=== PATIENT | male | born 2000 | race Caucasian/White ===

== ENCOUNTER 2024-07-08 14:15 | Emergency (ER) | payer MEDICAID, SELFPAY ==
[2024-07-08 14:33] VITALS: BP 112/87; PULSE 103; RESP 18; TEMP 37.2; O2SAT 100
--- NOTE | 2024-07-08 14:39 | ED_ITS ---
HPI - URI/Sore Throat General Chief Complaint: Upper Respiratory Infection Stated Complaint: Cough/Congestion/Body Aches Source: patient and RN notes reviewed Mode of arrival: ambulatory Limitations: no limitations History of Present Illness HPI Narrative: 23 y/o male presented for c/o headache, body aches, sinus drainage and congestion, cough, fever/chills. Onset 2 days. Had an episode of vomiting this morning. Denies sob, wheezing, or chest pain. Taking Dayquil. MD elicited complaint: cough Related Data Home Medications ?Medication ?Instructions ?Recorded ?Confirmed ?Last Taken ?Type atorvastatin 20 mg tablet 20 mg PO QPM 07/08/24 07/08/24 Unknown History lisinopril 5 mg tablet 5 mg PO DAILY 07/08/24 07/08/24 Unknown History Allergies Allergy/AdvReac Type Severity Reaction Status Date / Time No Known Allergies Allergy Verified 07/08/24 14:32 Review of Systems Review of Systems: CONSTITUTIONAL: Endorses malaise, chills, sweats, fever EYES: Denies visual changes, redness, or discharge ENT: Reports rhinorrhea, congestion, denies otalgia, sore throat CARDIOVASCULAR: Denies chest pain, palpitations, edema RESPIRATORY: Reports cough, post nasal drainage. Denies dyspnea GASTROINTESTINAL: Denies abdominal pain, nausea, reports vomiting MUSCULOSKELETAL: Endorses myalgia Exam Narrative: GENERAL: mildly Ill-appearing, nontoxic no acute distress. EYES: PERRLA, conjunctivae clear ENT: Mucous membranes moist. TM pearly sanabria with dull light reflex bilaterally; no tragal tenderness. Oropharynx erythematous without lesions or exudate, no drooling, no hoarseness, no trismus, uvula midline. No tripod positioning, muffled voice, soft palate or pharyngeal wall bulging NECK: Supple. No lymphadenopathy CHEST: Clear to auscultation, breath sounds equal. No wheezing, rhonchi, rales, or stridor. No respiratory distress, speaks in full sentences. HEART: Regular rate and rhythm. No murmur heard. SKIN: Warm, dry, no rash. NEURO: Alert and oriented x3. PSYCH: Normal mood and affect Course Course Emergency Course: Patient is aware of diagnosis, understands and agrees to treatment plan. Anticipatory guidance given. Patient agrees to follow-up as directed and is aware of reasons to seek care at the emergency department. Portions of this record may have been created with voice recognition software Level of Care: Express Care Visit Vital Signs Vital signs: Vital Signs Temperature 99.0 F 07/08/24 14:33 Pulse Rate 103 H 07/08/24 14:33 Respiratory Rate 18 07/08/24 14:33 Blood Pressure 112/87 07/08/24 14:33 Pulse Oximetry 100 07/08/24 14:33 Oxygen Delivery Room Air 07/08/24 14:33 Temperature 99.0 F 07/08/24 14:33 Pulse Rate 103 H 07/08/24 14:33 Respiratory Rate 18 07/08/24 14:33 Blood Pressure 112/87 07/08/24 14:33 Pulse Oximetry 100 07/08/24 14:33 Oxygen Delivery Room Air 07/08/24 14:33 reviewed MDM - URI/Sore Throat MDM Narrative Medical decision making narrative: Negative flu and COVID Discussed physical exam findings. Advised supportive measures and signs/symptoms to go to the ER. Pt is appropriate for outpt treatment and f/u. Differential Diagnosis Differential diagnosis: Likely upper respiratory infection, sinusitis, viral infection, bronchitis, influenza and pharyngitis Discharge Plan Discharge Clinical Impression: Viral infection Patient Disposition: Home, Self-Care Condition: Stable Instructions: Influenza (ED) Additional Instructions: Flu and COVID negative. You should avoid crowds until you are fever free for 24 hours without the use of fever reducing medications, or the symptoms are improved Rest. Drink plenty of fluids. Tylenol 1000mg every 8 hours as needed for pain/fever Flonase spray and Zyrtec (or Claritin/Ivonne) for sinus pressure/congestion over the counter Cough syrup may cause drowsiness; avoid driving or take it at night time. Follow up with your primary care provider as needed Go to the ER for worsening symptoms or concerns Patient Language: Slovenian Prescriptions: No Action atorvastatin 20 mg tablet 20 mg PO QPM lisinopril 5 mg tablet 5 mg PO DAILY Follow-up/Referrals: UNKNOWN,DOCTOR [Primary Care Provider] - Time of Disposition: 14:58
[2024-07-08 14:53] LABS: EDCOVIDSCREEN Negative (Negative); EDINFLUASCREEN Negative (Negative); EDINFLUBSCREEN Negative (Negative)
== END 2024-07-08 15:00 | disposition home or self-care (01) ==
PROVIDERS: Emergency Provider Nurse Practitioner Family
DX: B34.9 Viral infection, unspecified (principal); Z20.822 Contact with and (suspected) exposure to COVID-19
CPT/HCPCS: 87426; 87804; 99213; G0463

== ENCOUNTER 2025-02-26 18:50 | Emergency (ER) | payer OTHER, SELFPAY ==
[2025-02-26 18:59] VITALS: BP 132/80; PULSE 96; RESP 18; TEMP 36.6; O2SAT 100
--- NOTE | 2025-02-26 19:01 | ED.URI ---
HPI - URI/Sore Throat General Chief Complaint: Upper Respiratory Infection Stated Complaint: Chest Congestion Time Seen by Provider: 02/26/25 19:02 Source: patient Mode of arrival: ambulatory Limitations: no limitations History of Present Illness HPI Narrative: 24-year-old male presents with complaint of cough and chest congestion for 4 days. Patient reports symptoms started with weather changes, started to get some nasal congestion and postnasal drainage. Afebrile. No chest pain or shortness of breath. Taking [id number] DayQuil to treat symptoms. Patient states the last time he had similar symptoms he waited too long and developed pneumonia. All systems reviewed and negative except as noted above. Related Data Home Medications ?Medication ?Instructions ?Recorded ?Confirmed ?Last Taken ?Type atorvastatin 20 mg tablet 20 mg PO QPM 07/08/24 02/26/25 Unknown History lisinopril 5 mg tablet 5 mg PO DAILY 07/08/24 02/26/25 Unknown History Allergies Allergy/AdvReac Type Severity Reaction Status Date / Time No Known Allergies Allergy Verified 02/26/25 18:57 PMFSH Comments At time of signature, agree with nursing past medical, surgical, social and family history. There is no relevant family history pertinent to the presenting complaint. Exam Narrative: GENERAL: This is a well-nourished, well-developed patient, in no apparent distress. HEAD: normocephalic, atraumatic. EYES: PERRL. Sclera clear/white. Vision is grossly intact. EARS: External ears normal, auditory canals clear and without drainage, TMs normal without perforation. Hearing grossly intact. NOSE: External nose normal with clear nasal drainage THROAT: Mucous membranes moist, clear postnasal drainage without significant erythema swelling or exudates. NECK: Neck supple, non-tender without lymphadenopathy, masses or thyromegaly. CARDIOVASCULAR: Regular rate and rhythm without murmurs, gallops, or rubs. RESPIRATORY: Clear to auscultation. Breath sounds equal bilaterally. No wheezes, rales, or rhonchi. SKIN: warm, Dry, intact with no suspicious lesions or rash, good texture and turgor. NEURO: awake, alert, and oriented to person, place and time. There were no obvious focal neurologic abnormalities. EXTREMITIES: No joint tenderness, effusion, or edema noted. Course Course Level of Care: Express Care Visit Vital Signs Vital signs: Vital Signs Temperature 36.6 C 02/26/25 18:59 Pulse Rate 96 02/26/25 18:59 Respiratory Rate 18 02/26/25 18:59 Blood Pressure 132/80 02/26/25 18:59 Pulse Oximetry 100 02/26/25 18:59 Temperature 36.6 C 02/26/25 18:59 Pulse Rate 96 02/26/25 18:59 Respiratory Rate 18 02/26/25 18:59 Blood Pressure 132/80 02/26/25 18:59 Pulse Oximetry 100 02/26/25 18:59 Reviewed MDM - URI/Sore Throat MDM Narrative Medical decision making narrative: Patient is well-appearing, nontoxic. Afebrile. Recommend [id number] medications to treat URI symptoms. Lungs are clear to auscultation. Differential Diagnosis Differential diagnosis: Likely upper respiratory infection, sinusitis, viral infection and bronchitis Discharge Plan Discharge Clinical Impression: Viral upper respiratory tract infection with cough Patient Disposition: Home Condition: Stable Instructions: Upper Respiratory Infection (ED) Additional Instructions: Your symptoms are viral and may last 10-14 days. Continue [id number] DayQuil NyQuil cold and flu as directed on packaging. Take Zyrtec daily. Drink at least 64 [address] a day[address] cool mist humidifier in bedroom where you sleep. Follow-up with your primary care physician if symptoms are not improving. Patient Language: Senegalese Prescriptions: No Action atorvastatin 20 mg tablet 20 mg PO QPM lisinopril 5 mg tablet 5 mg PO DAILY Follow-up/Referrals: Fransico Ontiveros MD [Primary Care Provider, Internal Medicine] Time of Disposition: 19:08
== END 2025-02-26 19:16 | disposition home or self-care (01) ==
PROVIDERS: Emergency Provider Nurse Practitioner Family; PCP Internal Medicine
DX: J06.9 Acute upper respiratory infection, unspecified (principal); R05.9 Cough, unspecified; I10 Essential (primary) hypertension; E78.00 Pure hypercholesterolemia, unspecified
CPT/HCPCS: 99211; G0463